=== PATIENT | male | born 1985 | race Caucasian/White ===

== ENCOUNTER 2024-01-11 18:36 | Emergency (ER) | payer OTHER ==
[~2024-01-11] VITALS: Ht 188 cm; Wt 120.2 kg
[2024-01-11 18:50] VITALS: BP_SYST 131; PULSE 112; RESP 22; TEMP 102.9; O2SAT 92
[2024-01-11 19:24] LABS: MEAN CORPUSCULAR HEMOGLOBIN 29 pg (27-31)
[2024-01-11] MEDS ORDERED: PIPERACILLIN/TAZOBACTAM 3.375 GM/VIAL (ZOSYN) IV ONE (19:28)
[2024-01-11] MEDS ORDERED: VANCOMYCIN HCL 1000 MG/VIAL IV ONE (19:28)
[2024-01-11 19:33] LABS: BASOPHILS % (AUTO) 0.4 % (0.0-2.0); EOSINOPHILS % (AUTO) 0.4 % (0.0-4.0); HEMOGLOBIN 17.8 g/dL (14.0-18.0); LYMPHOCYTES # (AUTO) 0.4 K/uL (1.0-5.5); LYMPHOCYTES % (AUTO) 9.8 % (20.5-51.5); MEAN CORPUSCULAR HGB CONC 34 % (32-36); MEAN CORPUSCULAR VOLUME 85 fL (79.0-98.0); MONOCYTES # (AUTO) 0.2 K/uL (0.0-1.0); MONOCYTES % (AUTO) 5.9 % (1.7-9.3); NEUTROPHILS # (AUTO) 3.4 K/uL (1.8-7.7); NEUTROPHILS % (AUTO) 83.5 % (40.0-70.0); PLATELET COUNT (AUTO) 139 K/uL (130-430); RED BLOOD CELL COUNT(AUTO) 6.24 MIL/uL (4.2-6.2); RED CELL DISTRIBUTION WIDTH 15.4 % (9.0-15.0)
[2024-01-11 19:40] LABS: INR 1.3 (0.80-1.20); PROTHROMBIN TIME 13.1 SECS (9.5-12.5)
[2024-01-11] MEDS: VANCOMYCIN HCL 1,000 MG in D5W 250 ML IV ONE (19:57)
[2024-01-11] MEDS: NS 1000 ML IV.SOLN IV ONE (19:57)
[2024-01-11] MEDS: PIPERACILLIN/TAZO 3.375 GM in D5W 50 ML IV ONE (19:57)
[2024-01-11 20:04] LABS: BILIRUBIN,URINE 1+ (NEGATIVE); BLOOD, URINE NEGATIVE (NEGATIVE); CLARITY/URINE CLEAR (CLEAR); COLOR,URINE YELLOW (YELLOW); GLUCOSE,URINE NEGATIVE (NEGATIVE); KETONES,URINE 3+ (NEGATIVE); LEUKOCYTE ESTERASE ,URINE NEGATIVE (NEGATIVE); NITRITE, URINE NEGATIVE (NEGATIVE); PH,URINE 6.5 (5.0-8.0); PROTEIN URINE 2+ (NEGATIVE)
[2024-01-11] MEDS: MORPHINE 4 MG INJ. 4 MG/ML VIAL IVP ONE (20:31)
[2024-01-11] MEDS: ONDANSETRON HCL 4 MG/2 ML VIAL IVP ONE (20:31)
[2024-01-11 21:06] LABS: BACTERIA,URINE RARE /HPF (None Seen)
[2024-01-11] MEDS: ACETAMINOPHEN 500 MG TABLET PO ONE (21:15)
[2024-01-11 21:25] LABS: CANNABINOID, URINE POSITIVE (NEG <=50)
[2024-01-11 21:26] LABS: BARBITURATE, URINE NEGATIVE (NEG <=200); BENZODIAZEPINE, URINE NEGATIVE (NEG <=150); COCAINE, URINE NEGATIVE (NEG <=150); METHAMPHETAMINES SCREEN,URINE NEGATIVE (NEG <=500); OPIATE, URINE NEGATIVE (NEG <=100); PHENCYCLIDINE SCREEN,URINE NEGATIVE (NEG <=25); UR TRICYCLIC ANTIDEPRESSANTS POSITIVE (NEG <=300); URINE AMPHETAMINE NEGATIVE (NEG <=500); URINE METHADONE NEGATIVE (NEG <=200); URINE OXYCODONE SCREEN NEGATIVE (NEG <=100)
[2024-01-11] MEDS: NACL 0.9% 1,000 ML IV ONE (21:48)
[2024-01-11 22:00] LABS: ALBUMIN 3.2 g/dL (3.4-4.8); CALCIUM 7.9 mg/dL (8.4-11.0); CREATININE 1.19 mg/dL (0.55-1.30); POTASSIUM 3.5 mmol/L (3.5-5.1); TOTAL BILIRUBIN 0.7 mg/dL (0.0-1.0); TOTAL PROTEIN, SERUM 7.6 g/dL (6.4-8.3)
[2024-01-11] MEDS ORDERED: ACET-2634 PO (22:30)
[2024-01-11] MEDS ORDERED: IBUP-1969 PO (22:30)
[2024-01-11 22:45] VITALS: BP_SYST 138; PULSE 99; RESP 20; TEMP 98.4; O2SAT 98
== END 2024-01-11 22:45 | disposition home or self-care (01) ==
LOC: SED 18:36
DX: B34.9 Viral infection, unspecified (principal); I10 Essential (primary) hypertension; R50.9 Fever, unspecified; M79.10 Myalgia, unspecified site; R00.0 Tachycardia, unspecified; Z79.899 Other long term (current) drug therapy; Z20.822 Contact with and (suspected) exposure to COVID-19
CPT/HCPCS: 99285; 96365; 96375; 71045; 96361; 96366; 87426; 80307; 80053; 81001; 85025; 85610; 85730; 87040; 87086; 84484; 36415; 93005; 96368; 82948; 83605; 82977; G0482; J2405; J2543; J3370; J2270; J7030; 81000; 81015